=== PATIENT | female | born 1970 | race Caucasian/White ===

== ENCOUNTER → 2021-06-08 10:48 | Outpatient (CLI) | payer OTHER, SELFPAY ==
--- NOTE | ~2021-06-08 | MM_ITS ---
EXAMINATION: MM screening simba BI w ирина HISTORY: Screening TECHNIQUE: Craniocaudal and mediolateral oblique 3-D tomosynthesis images were obtained and synthetic 2-D images were generated. CAD analysis was submitted and interpreted. COMPARISON: Comparison to multiple prior studies sequentially, with oldest reviewed study dated 08/15. BREAST PARENCHYMAL COMPOSITION: There are scattered areas of fibroglandular density. FINDINGS: There is focal asymmetry in the upper outer quadrant of the left breast with possible archi tectural distortion. The right breast is stable without evidence for malignancy. IMPRESSION: 1. Focal asymmetry in the upper outer quadrant of the left breast. 2. Additional mammographic views and possible breast ultrasound are recommended. BI-RADS Category 0: Incomplete: Needs additional imaging evaluation. Reviewed, dictated and finalized at location A. IMPRESSION: 1. Focal asymmetry in the upper outer quadrant of the left breast. 2. Additional mammographic views and possible breast ultrasound are recommended . BI-RADS Category 0: Incomplete: Needs additional imaging evaluation.
== END ==
PROVIDERS: PCP Family Medicine; Visit Provider Obstetrics & Gynecology Gynecology
DX: Z12.31 Encounter for screening mammogram for malignant neoplasm of breast (principal); R92.8 Other abnormal and inconclusive findings on diagnostic imaging of breast
CPT/HCPCS: 77063; 77067

== ENCOUNTER 2021-06-27 11:01 | Outpatient (CLI) | payer OTHER, SELFPAY ==
--- NOTE | ~2021-06-27 | MM_ITS ---
EXAMINATION: MM diagnostic simba LT w ирина HISTORY: Focal asymmetry of the left breast on screening mammogram TECHNIQUE: Additional 3-D tomosynthesis images of the left breast were performed and synthetic 2-D im ages were generated. CAD analysis was submitted and interpreted. COMPARISON: 06/08/2021, 07/10/2017,08/15/2012 FINDINGS: There is a return to baseline fibroglandular appearance with spot compression of the left b reast in the area questioned on screening mammogram. IMPRESSION: 1. No mammographic evidence of malignancy. 2. Recommend routine screening mammography in one year. BI-RADS Category 1: Negative Reviewed, dictated and finalized at location A. Y DUTY PRESS OPERATOR
== END 2021-06-27 11:02 | disposition home or self-care (01) ==
LOC: ANHIMG 11:03
PROVIDERS: PCP Family Medicine; Visit Provider Obstetrics & Gynecology Gynecology
DX: R92.8 Other abnormal and inconclusive findings on diagnostic imaging of breast (principal)
CPT/HCPCS: 77061; 77065; G0279

== ENCOUNTER → 2021-11-02 10:02 | Outpatient (CLI) | payer OTHER, SELFPAY ==
--- NOTE | ~2021-11-02 | XR_ITS ---
XR shoulder LT min 2V DATE: 11/02/2021 10:18 INDICATION: Left shoulder pain TECHNIQUE: 4 views COMPARISON: None FINDINGS: No fracture or dislocation, periosteal reaction or bone destruction or abnormal soft tissue calcification. Normal alignment at the acromioclavicular and glenohumeral joints. IMPRESSION: Negative Reviewed, dictated and finalized at location A. IMPRESSION: Negative
== END ==
PROVIDERS: PCP Physician Assistant; Visit Provider Physician Assistant
DX: M77.9 Enthesopathy, unspecified (principal)
CPT/HCPCS: 73030

== ENCOUNTER 2022-02-07 07:30 | Outpatient (RCR) | payer OTHER, SELFPAY ==
--- NOTE | 2022-01-17 08:19 | PTOPEVAL ---
PHYSICAL THERAPY EVALUATION AND PLAN OF CARE Thank you for referring Digna Hodge to [facility].? The patient is scheduled to be seen for therapy? 1-2x/week for 5 weeks. Please review, sign, date and return this plan of care JUAN. I agree with and certify that the following plan of care is medically necessary. Referring Physician Date Attending Provider: Radames Sheffield MD Diagnosis left adhesive capsulitis Onset 6 months Subjective Information Digna reports that she has Query Text:As Reported By Patient/ been experiencig difficulty Family raising her left arm for a few months. Pain at end ranges and occasional quick pains with reaching out. Difficulty reaching behind head, behind back, getting dressed, washing her hair. Self Report Pain Assessment Left Shoulder(s) Reported Pain Level 0 Pain Description Aching Pain Frequency Chronic,Intermittent Lowest Pain Intensity 0 Greatest Pain Intensity 7 Interventions Used Interventions Used By Clinicians Exercise,Manual Therapy Techniques Pain Relief Interventions Used By Inactivity/Rest Patient Upper Extremity Range of Motion Scapular/ Shoulder Range of Motion Left Shoulder Flexion - Active 130 Shoulder Abduction - Active 135 Shoulder Medial Rotation - Active PSIS Query Text:Reach Behind the Back Shoulder Lateral Rotation - Active T1 Query Text:Reach Behind the Head Upper Extremity Muscle Strength Testing Scapular/Shoulder Right Shoulder Flexion Strength 5 Normal Shoulder Abduction Strength 5 Normal Shoulder Medial Rotation Strength 5 Normal Shoulder Lateral Rotation Strength 5 Normal Left Shoulder Flexion Strength 4- Good - Shoulder Abduction Strength 3+ Fair + Shoulder Medial Rotation Strength 4- Good - Shoulder Lateral Rotation Strength 3+ Fair + Palpation increased tension and tightness noted to left upper trapezius, subscapularis, deltoid, and biceps tendon; restricted motion to posterior capsule PT Clinical Summary Digna is a 51 yo female presenting to outpatient physical therapy with diagnosis of adhesive capsulitis. She presents today with limited shoulder ROM with capsular pattern and limit
--- NOTE | 2022-03-05 11:35 | PCPTNOTE ---
PHYSICAL THERAPY DISCHARGE NOTE Attending Provider: Radames Sheffield MD Patient:Digan Hodge Date of :1970 Digna was participating in physical therapy for adhesive capsulitis. She attended 4 visits and cancelled her last two due to vacation. She did not reschedule any appointments as she wanted to speak with orthopedic physician. Have not received communication from patient did her last visit on 02/07/2022, therefore she will be discharged at this time. Patient?s initial visit was on 01/17/2022. Thank you for referring this patient to [facility]. Please review, sign, date and return this discharge summary JUAN. I have been updated about the patient's current status and I agree with discharge from the above service at this time. Referring Physician Date
== END 2022-03-05 16:18 | disposition home or self-care (01) ==
LOC: ANHPT 07:30
PROVIDERS: PCP Physician Assistant; Visit Provider Orthopaedic Surgery
DX: M75.02 Adhesive capsulitis of left shoulder (principal)
CPT/HCPCS: 97110; 97112; 97140; 97161

== ENCOUNTER → 2022-04-23 11:12 | Outpatient (CLI) | payer OTHER, SELFPAY ==
--- NOTE | ~2022-04-23 | CT_ITS ---
EXAMINATION: CT abdomen pelvis wo con DATE: 04/23/2022 11:32 INDICATION: Right upper quadrant abdominal pain. Constipation. TECHNIQUE: Computed tomography (CT) of the abdomen and pelvis was performed without intravenous contr ast. Automated exposure control and iterative reconstruction technique were employed. Exam dose: 264 .89 mGy-cm total exam DLP. COMPARISON: None. FINDINGS: There is some calcifications in the posterior basilar right lower lobe likely due to old gr anulomatous disease. The lung bases are clear of infiltrate or consolidation. Normal heart size. No p ericardial or pleural effusion. The liver, gallbladder, bile ducts, spleen, pancreas, pancreatic duct, and adrenal glands and kidneys appear normal on this limited noncontrast examination. No urinary tract calculus or hydroureteroneph rosis is detected. The urinary bladder, uterus and right ovary are unremarkable. Approximately 2 x 3 cm left ovarian cyst is suggested. Normal caliber of the abdominal aorta. No intraperitoneal or retroperitoneal or pelvic mass lesion or adenopathy or ascites is detected. No suspicious osteolytic or osteoblastic lesions are noted. IMPRESSION: Approximately 2 x 3 cm left ovarian cyst Reviewed, dictated and finalized at Location A. Reviewed, dictated and finalized at location B.
== END ==
PROVIDERS: PCP Emergency Medicine; Visit Provider Emergency Medicine
DX: R10.9 Unspecified abdominal pain (principal); N83.202 Unspecified ovarian cyst, left side
CPT/HCPCS: 74176

== ENCOUNTER 2022-07-23 07:00 | Outpatient (NON) | payer OTHER, SELFPAY | END 2022-07-23 07:01 | disposition home or self-care (01) | LOC: ANHLAB 07-24 12:10 | PROVIDERS: PCP Emergency Medicine; Visit Provider Emergency Medicine | DX: L57.0 Actinic keratosis (principal) | CPT/HCPCS: 88305 ==

== ENCOUNTER 2022-11-19 08:31 | Outpatient (CLI) | payer OTHER, SELFPAY ==
--- NOTE | ~2022-11-19 | MM_ITS ---
EXAMINATION: MM screening [facility] BI w ирина HISTORY: Screening mammogram TECHNIQUE: Craniocaudal and mediolateral oblique 3-D tomosynthesis images were obtained and synthetic 2-D images were generated. CAD analysis was submitted and interpreted. COMPARISON: 06/27/2021, 06/08/2021, 07/10/2017 BREAST PARENCHYMAL COMPOSITION: The breasts are heterogeneously dense, which may obscure small masses . FINDINGS: No suspicious mass, calcification, or architectural distortion are identified in either dayanna ast to suggest malignancy. There has been no suspicious interval change. IMPRESSION: 1. No mammographic evidence of malignancy. 2. Recommend routine screening mammography in one year. BI-RADS Category 1: Negative Reviewed, dictated and finalized at location A.
== END 2022-11-19 08:32 | disposition home or self-care (01) ==
PROVIDERS: PCP Emergency Medicine; Visit Provider Nurse Practitioner
DX: Z12.31 Encounter for screening mammogram for malignant neoplasm of breast (principal)
CPT/HCPCS: 77063; 77067

== ENCOUNTER 2023-07-22 09:03 | Outpatient (CLI) | payer OTHER, SELFPAY ==
--- NOTE | ~2023-07-22 | US_ITS ---
Limited Abdominal Sonogram: Real-time sonographic imaging of the right upper quadrant was performed. Clinical History: Right upper quadrant pain Findings: The liver appears normal with no evidence of mass lesion or bile duct dilatation. Main por carlos enrique vein demonstrates normal direction of flow. The gallbladder is well distended, and appears normal with no evidence of gallstone or wall thickening. The common bile duct measures 8 mm. The visualize d pancreas, aorta, and IVC are unremarkable. Impression: No significant abnormality seen. Reviewed, dictated and finalized at location M. TAL CONTENT MANAGER Impression: No significant abnormality seen.
== END 2023-07-22 09:04 | disposition home or self-care (01) ==
PROVIDERS: PCP Emergency Medicine; Visit Provider Emergency Medicine
DX: R10.11 Right upper quadrant pain (principal)
CPT/HCPCS: 76705

== ENCOUNTER 2023-11-12 09:46 | Outpatient (CLI) | payer BC, SELFPAY ==
--- NOTE | ~2023-11-12 | US_ITS ---
Pelvic ultrasound. Clinical History: Abnormal bleeding Technique: Realtime transabdominal and transvaginal scanning of the pelvis was performed. Color flow Doppler and Doppler spectral analysis were performed. Findings: The uterus is anteverted. The endometrial stripe has a thickness of 7 mm. Probable small a nterior wall fibroid measuring 7 mm.. Neither ovary seen. No adnexal mass seen. There is no evidence of free fluid in the cul de sac. Impression: 7 mm fibroid. Neither ovary seen. Reviewed, dictated and finalized at location . Impression: 7 mm fibroid. Neither ovary seen.
== END 2023-11-12 09:47 ==
PROVIDERS: PCP Emergency Medicine; Visit Provider Nurse Practitioner
DX: N93.8 Other specified abnormal uterine and vaginal bleeding (principal); D25.9 Leiomyoma of uterus, unspecified
CPT/HCPCS: 76830; 76856

== ENCOUNTER 2023-11-25 01:59 | Day surgery (SDC) | payer BC, SELFPAY ==
[2023-11-18 16:00] VITALS: BMI 20.8
--- NOTE | 2023-11-18 16:21 | PC.NURSE ---
Report to the Outpatient Waiting Room, entrance under the green pavilion located off [facility], at 0900 on 11-25-23. Planned Procedure Time: 1100. Time changes happen often and if your time is changed the preop area will call you the afternoon before. - You and your visitor will be asked to self-screen and do not enter if you have any COVID symptoms. - A mask is optional within the hospital at this time. Patients may have clear liquids (water, carbonated beverages, clear teas, apple juice) until 3 hours prior to surgery with a maximum of 20 ounces. 0800 - No food from midnight until time of surgery - Infants may have breast milk until 4 hours before surgery, formula 6 hours prior to surgery. - Children will be allowed to drink immediately following surgery. If applicable, please bring a bottle or sippy cup to assist with drinking. Juice, water, soda, and popsicles are readily available. For infants on formula, please bring formula the day of surgery. Pacifiers are allowed. Take the following medications with a SIP of water the morning of surgery: None DO NOT STOP ANY OF YOUR OTHER PRESCRIPTION MEDICATIONS PRIOR TO SURGERY ?EXCEPT THE FOLLOWING Medications to discontinue per physician: vitamins and supplements Date to take last dose: 11-22-23 Please no make-up, nail spanish, hairspray, perfume, deodorant, or body powder the day of surgery. No jewelry (including any body piercings) or valuables the day of surgery, leave them at home. Please take a shower or bath the night before, or the morning of, surgery with an antibacterial soap. Wear comfortable, loose fitting clothing. Children are encouraged to wear pajamas. - Jewelry must be removed prior to entering the operating room. Rings and piercings that are not removed may be cut off. - The hospital will not accept responsibility for valuables. - Please leave all valuables, including medications, at home the day of surgery. If you are going home after surgery, a licensed cattle driver must drive you home. - NO public transportation without another adult if you receive anesthesia. - We recommend that an adult stay with you for 24 hours following discharge. - We also recommend that you do not drive, make important decision, drink alcoholic beverages, or take any drugs that were not prescribed by your health care provider for at least 24 hours after your discharge time. For Pediatric surgeries, we recommend two adults accompany the child home. Follow any additional instructions given to you from your surgeon. If you or anyone in your household have experienced Covid symptoms in the past week, please notify your surgeon or the nurse liaison at the phone number below for possible testing. Telephone instructions given to Gabriela Hodge and asked if any additional questions and then verbalized understanding. Patient advised to call surgeon office or pre surgery nurse liaison [phone] if any additional questions.
--- NOTE | 2023-11-25 07:34 | WPDHPUPDATE1 ---
History and Physical Update Update Date/Time: 11/25/23 07:34 History and Physical has been reviewed, including an updated exam of the patient. There are NO changes in the patient's condition. Risks, benefits, and alternatives have been discussed and questions answered. Patient agrees to proceed with procedure.
--- NOTE | 2023-11-25 07:34 | PM.HPGS ---
History of Present Illness History of Present Illness Consent: Risks, benefits, and alternatives have been discussed and questions answered. Patient agrees to proceed with procedure. Chief complaint: abnormal uterine bleeding Narrative: Digna Hodge is a 53 year old female with erratic vaginal bleeding that is prolonged. Patient is bleeding every 7 to 58 days with an average of 10 days of bleeding at a time. She has random spotting throughout her cycle. The bleeding is not heavy. Pelvic ultrasound reveals a small fibroid but is otherwise normal. It was recommended to undergo D&C hysteroscopy for further evaluation. Risks of infection, bleeding, perforation, and possible pathology are reviewed. Patient voices understanding and agrees to proceed. 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 Family History Family History Mother Diabetes mellitus Hypertension Grandparent Family history of cardiovascular disease, Onset Age: 80 Social History Social History Smoking status: Never smoker Second hand tobacco smoke exposure: No Alcohol intake: never Substance use: never Substance use type: does not use Lack of Transportation: No Lack of Food: Never True Current Housing: I Have Housing Concerned About Future Housing: No Difficulty Paying Gas/Electric Bills: No Difficulty Paying for Meds: No Currently Unemployed: No Education: Master's Degree or Higher Difficulty w/ Childcare or Family Care: No Living arrangements: with family Additional occupation/education comments: Homemaker Gender identity (if verbalized by the patient): Female Spiritual care concerns: No Meds Home Medications and Allergies Home Medications Medication Instructions Recorded Confirmed Type cholecalciferol (vitamin D3) 50 50 mcg PO DAILY 11/18/23 11/18/23 History mcg (2,000 unit) tablet (Vitamin D3) Allergies Allergy/AdvReac Type Severity Reaction Status Date / Time avocado AdvReac Mild Diarrhea Verified 11/18/23 15:56 Exam Const: General: healthy appearing and alert Orientation/consciousness: patient oriented x3 Resp: Effort & Inspection: normal respiratory effort GI: GI Palp: Yes Soft to palpation, No Tenderness to palpation present (GI) and No Palpable mass present : External Female Exam: normal external appearance Speculum Exam - Vagina: normal appearance of the vagina and normal vaginal discharge Speculum Exam - Cervix: normal appearance of the cervix Bimanual exam- vagina & uterus: uterine size normal and consistency normal Bimanual Exam- Adnexa, other: normal adnexae and No adnexal tenderness Neuro: General: patient oriented x3 Assessment and Plan Assessment and plan (1) Menorrhagia: Code(s): N92.0 - Excessive and frequent menstruation with regular cycle Status: Acute Assessment and Plan: plan to proceed with D&C hysteroscopy
[2023-11-25 09:05] VITALS: BP 125/75; PULSE 64; RESP 16; TEMP 36.4; O2SAT 100
[2023-11-25] MEDS: ACETAMINOPHEN 500 MG TABLET 1000 MG PO (09:27)
[2023-11-25] MEDS: LACTATED RINGERS 1,000 ML 30 ML IV CONT (09:30)
--- NOTE | 2023-11-25 10:15 | WPDANESEPPF ---
Anes - Initial Pre Proc Eval Procedure: Operation Date: 11/25/23 11:00 Proposed Procedures p Hysteroscopy Dilation and Curettage - Merlyn Flynn MD Date/Time: 11/25/23 10:15 Surgeon: Merlyn Flynn MD Pre Op Diagnosis: abnormal uterine bleeding Patient Data Age: 53 Gender: F Height: 1.7 m Weight: 59.2 kg Last Vital Signs Temp 97.6 F 11/25/23 09:05 Pulse 64 11/25/23 09:05 Resp 16 11/25/23 09:05 BP 125/75 11/25/23 09:05 Pulse Ox 100 11/25/23 09:05 O2 Del Method Room Air 11/25/23 09:05 Allergies Allergy/AdvReac Type Severity Reaction Status Date / Time avocado AdvReac Mild Diarrhea Verified 11/25/23 09:13 Home Medications Medication Instructions Recorded Confirmed Type cholecalciferol (vitamin D3) 50 50 mcg PO DAILY 11/18/23 11/25/23 History mcg (2,000 unit) tablet (Vitamin D3) Patient hx anesthesia problems: none Family hx anesthesia problems: none Results Review: All pre-operative results and documents have been reviewed as part of the pre-operative evaluation. 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 Family History Family History Mother Diabetes mellitus Hypertension Grandparent Family history of cardiovascular disease, Onset Age: 80 Social History Social History Smoking status: Never smoker Second hand tobacco smoke exposure: No Alcohol intake: never Substance use: never Substance use type: does not use Lack of Transportation: No Lack of Food: Never True Current Housing: I Have Housing Concerned About Future Housing: No Difficulty Paying Gas/Electric Bills: No Difficulty Paying for Meds: No Currently Unemployed: No Education: Master's Degree or Higher Difficulty w/ Childcare or Family Care: No Living arrangements: with family Additional occupation/education comments: Homemaker Gender identity (if verbalized by the patient): Female Spiritual care concerns: No Anes - Eval Final PreProcedure Day of Procedure 11/25/23 10:15 Patient weight: normal Heart: regular rate and rhythm Lungs: clear to auscultation Airway: Mallampati scale class II Neurological: alert and oriented Last oral intake: >/= 8 hours ASA classification: I Emergent: no Anesthetic plan: proceed Anesthesia type and monitoring: general GIVS and standard monitoring Results Review: All pre-operative results and documents have been reviewed as part of the pre-operative evaluation. Informed Consent: The patient's anesthetic plan and its attendant risks and benefits were discussed with the patient/family/POA. Questions were solicited and answers provided to the satisfaction of the patient/family/POA.
[2023-11-25] MEDS: KETOROLAC 30 MG/ML VIAL (*BKC) IV PUSH (10:53)
[2023-11-25 11:02] VITALS: BP 101/65; PULSE 64; RESP 16; O2SAT 100
--- NOTE | 2023-11-25 11:04 | W.PM.PROC2 ---
Procedure Note - Detailed Date of Procedure 11/25/23 Pre-op Diagnosis abnormal uterine bleeding Post-op Diagnosis Same Procedure Performed D&C hysteroscopy with resection of polyp Surgeon Merlyn Flynn MD Anesthesia MAC Findings uterus sounds to 9cm the anterior wall is very thickened consistent with a polyp Description of Procedure The patient is taken to the operating room and placed under anesthesia in the dorsal lithotomy position. She was prepped and draped in the usual sterile fashion. [place] speculum was placed in the vagina and the cervix grasped on the anterior with a tenaculum. The uterus is sounded to 9cm. The diagnostic hysteroscope was placed. Anteriorly at the junction of the cervix and endometrium there is a rounded tissue hanging into the surgical field. Although not a typical appearing polyp, the tissue was consistent with polyp as it was resected. The small Aveeta resection device is used to resect polyp in its entirety. The hysteroscope was then removed and the sharp OO curette used to curette the endometrium until a good uterine cry is noted in all areas. All instruments are removed. Sponge, needle, and instrument counts are correct per the OR staff. The patient was taken to recovery in stable condition. Estimated Blood Loss 5 Drains No Packing No Pathology Yes ( Endometrial shavings and curettings) Complications No immediate complications Condition Stable Disposition PACU
[2023-11-25 11:30] VITALS: BP 101/64; PULSE 64
== END 2023-11-25 11:43 | disposition home or self-care (01) ==
PROVIDERS: PCP Emergency Medicine; Visit Provider Obstetrics & Gynecology Gynecology
PROC: 0U5B8ZZ Destruction of Endometrium, Via Natural or Artificial Opening Endoscopic (ICD-10-PCS; CPT 58563; principal; 2023-11-25 11:00)
DX: N92.0 Excessive and frequent menstruation with regular cycle (principal); N88.8 Other specified noninflammatory disorders of cervix uteri; F41.9 Anxiety disorder, unspecified; Z82.49 Family history of ischemic heart disease and other diseases of the circulatory system
CPT/HCPCS: 58558; 88305; A9270; J1885; J2250; J2405; J2704; J3010; J7120